=== PATIENT | female | born 1970 | race Two or more races ===

== ENCOUNTER → 2018-04-07 | Outpatient (CLI) | payer OTHER ==
--- NOTE | 2018-04-07 16:33 | US ---
EXAMINATION TYPE: US venous doppler duplex LE RT DATE OF EXAM: 04/07/2018 4:20 PM COMPARISON: NONE CLINICAL HISTORY: M25.571 PAIN,M19.071 OSTEOARTHRITIS,S93.401D SPRAI. Right ankle injury/surgery, rig ht leg pain SIDE PERFORMED: Right TECHNIQUE: The lower extremity deep venous system is examined utilizing real time linear array sonog mya with graded compression, doppler sonography and color-flow sonography. VESSELS IMAGED: External Iliac Vein (EIV) Common Femoral Vein Deep Femoral Vein Greater Saphenous Vein * Femoral Vein Popliteal Vein Small Saphenous Vein * Proximal Calf Veins (* superficial vessels) Grayscale, color doppler, spectral doppler imaging performed of the deep veins of the right lower ext remity. There is normal flow, compressibility, vascular waveforms. Right Leg: Negative for DVT *Results called to Kate at 's office at time of exam IMPRESSION: No sonographic evidence of deep venous thrombosis within the right lower extremity.
[2018-04-07 16:56] LABS: HCT 39.2 % (34.0-46.0); HGB 13.3 gm/dL (11.4-16.0); MCH 30.6 pg (25.0-35.0); Mean Platelet Volume 6.6; Platelet Count 328 k/uL (150-450); RBC 4.36 m/uL (3.80-5.40); RDW 12.1 % (11.5-15.5); WBC 9.7 k/uL (3.8-10.6)
[2018-04-07 19:13] LABS: Erythrocyte Sedimentation Rate 8 mm/hr (0-20)
== END | disposition home or self-care (01) ==
LOC: RADUSWWP 15:51
PROVIDERS: ATTEND Orthopaedic Surgery
DX: S93.401D Sprain of unspecified ligament of right ankle, subsequent encounter (principal); M19.071 Primary osteoarthritis, right ankle and foot; I80.9 Phlebitis and thrombophlebitis of unspecified site
CPT/HCPCS: 36415; 83520; 85027; 85652; 86140; 87070; 87075; 87205; 89060

== ENCOUNTER 2018-12-17 09:05 | Inpatient (IN) | payer OTHER ==
[2018-12-10 16:15] VITALS: BMI 32.4
[~2018-12-17 09:05] MED LIST: DEXAMETHASONE SOD PHOSPHATE 10 MG/ML 1 ML VIAL IV ONE; LIDOCAINE 1% 20 ML VIAL (10MG/ML) FOR IV START INTRADERMA PRN; ONDANSETRON 4 MG/2 ML VIAL IVP ONE; SCOPOLAMINE 1.5MG/72HR PATCH TRANSDERM ONE; ceFAZolin IN SWFI 2 GM/20 ML SYRINGE IVP ONE
[2018-12-17] MEDS: LACTATED RINGERS 1,000 ML IV SCH ×2 (11:26→17:36)
[2018-12-17] MEDS ORDERED: fentaNYL (PF) 50 MCG/ML 2 ML AMP IVP ONE (12:05)
[2018-12-17] MEDS ORDERED: MIDAZOLAM 2 MG/2 ML VIAL IVP ONE (12:05)
[2018-12-17] MEDS ORDERED: PROPOFOL 10 MG/ML 20 ML VIAL IV ONE (13:10)
[2018-12-17] MEDS ORDERED: MIDAZOLAM 2 MG/2 ML VIAL ONE (13:10)
[2018-12-17] MEDS ORDERED: fentaNYL (PF) 50 MCG/ML 2 ML AMP ONE (13:10)
[2018-12-17] MEDS ORDERED: ROPIVACAINE 5 MG/ML 30 ML VIAL ONE (13:10)
[2018-12-17] MEDS ORDERED: LACTATED RINGERS 1,000 ML IV ONE (13:45)
--- NOTE | 2018-12-17 13:50 | P.ONQ ---
Anesthesiology Proc Note - PNB - Peripheral Nerve Block Performed Right Popliteal Single Procedure Start Time: 12:05 Indication: Acute Post-Operative Pain, Analgesia Specifically requested for management of pain by DrStu: Chandrakant Mckeon Sedation Type: Sedate with meaningful contact maintained Preparation: Sterile Prep Position: Supine (L lateral) Catheter: None Needle Types: Other (see comment) (Pajunk) Needle Size: 50mm (2") Needle Gauge: 21 Technique: Ultrasound Injectate: 0.5% Ropivacaine (see comment for volume) (25cc) Blood Aspirated: No Pain Paresthesia on Injection Noted: No Resistance on Injection: Normal Events: Uneventful and Well Tolerated
--- NOTE | 2018-12-17 13:52 | P.ONQ ---
Anesthesiology Proc Note - PNB - Peripheral Nerve Block Performed Right Saphenous/Obturator Single Indication: Acute Post-Operative Pain, Analgesia Specifically requested for management of pain by Dr.: Chandrakant Mckeon Sedation Type: Sedate with meaningful contact maintained Preparation: Sterile Prep Position: Supine Catheter: None Needle Types: Other (see comment) (Pajunk) Needle Size: 100mm (4") Needle Gauge: 21 Technique: Ultrasound Injectate: 0.5% Ropivacaine (see comment for volume) (15cc) Blood Aspirated: No Pain Paresthesia on Injection Noted: No Resistance on Injection: Normal Events: Uneventful and Well Tolerated
--- NOTE | 2018-12-17 15:40 | XR ---
Fluoroscopy INDICATION: Pain FINDINGS: Fluoroscopy time: 1 minute 10 seconds. Images obtained: 2. IMPRESSIONS: 1. Documentation of fluoroscopy.
--- NOTE | 2018-12-17 15:57 | P.OP ---
Date of Procedure: 12/17/18 Preoperative Diagnosis: 1. Right ankle arthritis Postoperative Diagnosis: Same Procedure(s) Performed: 1. Right ankle joint arthrodesis 2. Application of short leg splint by physician, right leg Anesthesia: madyson GORMAN Surgeon: Chandrakant Mckeon Clinical Engineer #1: Marlee Land Estimated Blood Loss (ml): 50 IV fluids (ml): 600 Pathology: none sent Condition: stable Disposition: PACU Indications for Procedure: The patient is a very pleasant 48-year-old female who has a long-standing history of problems with her right ankle. She had developed right ankle arthritis and was initially managed by another provider with cortisone injections and bracing. She came to me 2 years ago to discuss surgical treatment options. Initially her main complaint was a large prominence over the anterior aspect of the ankle and so she underwent an open cheilectomy in an attempt to give her some relief with a joint sparing procedure. She continued to have worsening pain and progression of arthritis on her x-rays. We tried nonsurgical treatment with a repeat cortisone injection and brace but she had continued difficulty and pain. She was sent to a pain specialist. Her ankle was aspirated but was negative for infection. She requested surgery. We discussed different surgical treatment options for end-stage ankle arthritis including an ankle fusion versus an ankle replacement. We discussed the pros and cons of both procedures. The patient did research on her own and requested an ankle fusion. She is well aware of the potential risks and complications of an ankle fusion. She also understands the long-term implications of having an ankle fusion including lack of motion and adjacent joint arthritis. We discussed potential risks and complications of surgery including but not limited to risk of anesthesia, superficial infection, deep infection, delayed wound healing, nonunion of the fusion site, malunion the fusion site, some traumatic hardware, intraoperative fracture, postoperative fracture, DVT, PE, and possibly loss of life or limb. The patient voiced understanding of this and also analysis there are other less common complications are possible. She provided her verbal and written consent to go forward with surgery. Description of Procedure: The patient was identified in preoperative holding and the correct right leg was marked my initials. I reviewed the consent form with the patient and her family. All their questions were answered. The patient was given a popliteal and saphenous nerve block by anesthesia. She was brought to the operating room and transferred onto the OR table where general anesthetic and preoperative antibiotics were administered. A tourniquet was applied to the proximal aspect the right leg. While she was under anesthesia a Silfverskiold test was performed. I was able to passively dorsiflex her ankle past neutral with the knee extended slightly elected to not perform a gastrocnemius recession. All bony prominences were well-padded. A bump was placed under the right buttock. A ramp was placed under the right leg. The right leg was then prepped and draped in standard sterile fashion. Prior to starting surgery timeout was performed identifying the correct patient, operative extremity, and procedure. The patient's leg was then elevated, exsanguinated with an Esmarch bandage, and the tourniquet was inflated to 250 mmHg. I began by outlining a lateral incision over the distal fibula which extended anteriorly 45 of the tip of the fibula. Skin incision with a scalpel and dissection was carried down carefully through subcu tennis tissue with tenotomy scissors. The soft tissue over the anterior aspect of the fibula was sharply released. Modified tibial home and retractors were placed isolating the fibular shaft just proximal to the syndesmosis and an oblique osteotomy was made with a microsagittal saw using saline to cool the bone. The fibula was then booked open using the posterior soft tissue as a hinge. Towel clips were placed and the medial third of the fibula was sharply cut with a microsagittal saw, passed off to the back table, and morcellized for use as bone graft. K wires were then placed into the subchondral bone of the tibial plafond and in the talar dome for use of an invasive distractor. The distractor was placed and gentle distraction was applied across the ankle joint. On inspection there was complete loss of cartilage in the exposed portion of the talar dome and the tibial plafond. There were large osteophytes at the anterior aspect of the tibia which were removed with a Bob. The remaining articular cartilage was removed with a series of curettes and osteotomes. The joint was copiously irrigated and all soft tissue debris was removed. A 2.5 mm drill bit was used to generously perforate the exposed subchondral bone to help facilitate fusion. A mixture of crushed autograft bone taken from the fibula and augment was mixed and packed into the fusion site. K wires for cannulated 5.5 mm screws were placed medially and laterally in the tibia up to the ankle joint. The joint was then positioned for fusion at neutral and the K wires were driven into the talus. Both were measured, drilled up to the ankle joint, and partially threaded 5.5 mm cannulated screws were both placed generating excellent compression across the fusion site. At this point I elected to place a homerun screw. A stab incision was made posteromedially over the Achilles tendon with the foot in the [id number] position. The K wire was driven into the talus. Its position was verified with fluoroscopy. I drilled up to the ankle joint. As I began putting the screw in it began to distract the ankle joint as it was hitting one of the previously placed 5.5 mm screws. I gently backed the screw out and tightened the anteromedial and anterolateral 5.5 mm screw. Due to the patient's relatively poor bone quality I elected to not place another drill hole in the posterior tibia for fear of inadvertently fracturing the tibia. I felt I had very good purchase with the previously taste screws. The fibula was placed back in position and secured with solid 4.5 mm screws through the fibula into the tibia and talus. Final fluoroscopic images were taken. The wound was irrigated carefully to not wash away augment. The wound was then closed in layers. A sterile dressing was applied. The patient was placed in a well-padded bulky Oliver splint. She was awoken from her anesthetic, transferred to a gurney, and brought to PACU without procedure well. Marlee Land PAC was required as a skilled statistical assistant for patient positioning, surgical exposure, retraction placement of hardware, closure of wound, and application of splint. Plan: The patient can be admitted overnight for pain control and IV antibiotics. She is to be strictly nonweightbearing on her operative leg. She is to keep her splint on at all times. Physical therapy will be consulted for gait training. She can discharge home likely tomorrow her pain is controlled and she passes physical therapy.
[2018-12-17] MEDS ORDERED: SENNOSIDES-DOCUSATE SODIUM 1 EACH TAB PO PRN (16:13)
[2018-12-17] MEDS ORDERED: HYDROmorphone 0.5 MG/0.5 ML SYRINGE IVP PRN (16:13)
[2018-12-17] MEDS ORDERED: HYDROcodone/APAP 5-325MG 1 EACH TAB PO PRN ×2 (16:13)
[2018-12-17] MEDS: HYDROmorphone 0.5 MG/0.5 ML SYRINGE IVP PRN ×5 (16:22→22:55)
[2018-12-17 18:29] LABS: Basophils % (A) 0 %; Eosinophils # (A) 0.1 k/uL (0-0.7); Eosinophils % (A) 1 %; HCT 43.3 % (34.0-46.0); Lymphocytes # (A) 1.3 k/uL (1.0-4.8); Lymphocytes % (A) 13 %; MCH 30.7 pg (25.0-35.0); MCHC 32.3 g/dL (31.0-37.0); MCV 95.1 fL (80.0-100.0); Mean Platelet Volume 6.9; Monocytes # (A) 0.2 k/uL (0-1.0); Monocytes % (A) 2 %; Neutrophils # (A) 8.2 k/uL (1.3-7.7); Neutrophils % (A) 84 %; Platelet Count 338 k/uL (150-450); RBC 4.55 m/uL (3.80-5.40); RDW 12.7 % (11.5-15.5); WBC 9.8 k/uL (3.8-10.6)
[2018-12-17] MEDS: ceFAZolin IN SWFI 2 GM/20 ML SYRINGE IVP SCH (20:23)
[2018-12-18] MEDS: HYDROcodone/APAP 7.5-325MG 1 EACH TAB PO PRN ×2 (00:34→06:26)
[2018-12-18] MEDS: HYDROmorphone 0.5 MG/0.5 ML SYRINGE IVP PRN ×11 (01:20→23:00)
[2018-12-18] MEDS: LACTATED RINGERS 1,000 ML IV SCH ×5 (01:27→23:15)
[2018-12-18] MEDS: ceFAZolin IN SWFI 2 GM/20 ML SYRINGE IVP SCH (05:24)
[2018-12-18] MEDS: ENOXAPARIN 40 MG/0.4 ML SYRINGE SQ SCH (07:23)
--- NOTE | 2018-12-18 08:47 | P.PN ---
Subjective Progress Note Date: 12/18/18 Principal diagnosis: Ankle arthritis status-post right ankle joint arthrodesis This is a 48 year old female with a past medical history of arthritis that presented to [facility] yesterday for a right ankle joint arthrodesis with Dr. Mckeon. Today is post-operative day #1. The patient states her pain is currently not controlled. She feels she cannot go home, as she doesn't think she can do without Dilaudid. She has been up to the commode throughout the night, per patient. She has not worked with therapy yet today. She tolerated breakfast well. She denies chest pain, shortness of breath, nausea, vomiting, dysuria, numbness, tingling, fever, chills. Vital signs stable. Objective - Vital Signs Vital signs: Vital Signs Temp 98.1 F 12/18/18 07:00 Pulse 77 12/18/18 07:00 Resp 17 12/18/18 07:00 BP 136/76 12/18/18 07:00 Pulse Ox 96 12/18/18 07:00 Intake & Output 12/17/18 12/18/18 12/18/18 18:59 06:59 18:59 Intake Total 1800 740 Output Total 17 Balance 1783 740 Weight 85.729 kg Intake: IV 1800 Intake, IV Titration 200 Amount Lactated Ringers 1,000 ml 200 @ 100 mls/hr IV .Q10H [place] Rx#:[id number] Oral 540 Output: Estimated Blood Loss 17 Other: Voiding Method Bedside Commode # Voids 1 - Exam On examination, the patient is lying in bed in no acute distress. She is alert and orientated x3. On inspection of the right leg, there is a bulky Oliver splint in place. Splint is clean, dry, and intact. Capillary refill of the right great toe is less than 3 seconds. Sensation to light touch of the toes of right foot are intact. Neurovascular is intact to the right lower extremity. - Labs CBC & Chem 7: 12/17/18 17:29 Labs: Abnormal Lab Results - Last 24 Hours (Table) 12/17/18 Range/Units 17:29 Neutrophils # 8.2 H (1.3-7.7) k/uL Assessment and Plan Assessment: Ankle arthritis status-post right ankle joint arthrodesis Plan: - Patient is to remain non-weight bearing of the right lower extremity. Recommended patient ice and elevate right lower extremity to decrease pain and swelling. - PT for balance and gait training. - [place] 10 q6h added for pain control, decrease use of Diluadid as tolerated. Will continue to monitor pain. - Anticoagulation with lovenox 40mg qd while inpatient. Will switch to aspirin on discharge. - Case management consulted to obtain a wheelchair for patient on discharge. - We will plan for discharge once patient is comfortable and pain is controlled. - Patient discussed with Dr. Mckeon.
[2018-12-18] MEDS: ONDANSETRON 4 MG/2 ML VIAL IVP PRN ×2 (11:30→17:48)
[2018-12-18] MEDS: HYDROcodone/APAP 10-325MG 1 EACH TAB PO PRN ×3 (12:15→22:59)
[2018-12-18] MEDS: CHOLECALCIFEROL 1,000 UNIT TAB PO SCH (12:15)
[2018-12-18] MEDS ORDERED: ALBUTEROL NEBULIZED 2.5 MG/3 ML INHALATION PRN (14:48)
--- NOTE | 2018-12-18 14:59 | P.CONS ---
History of Present Illness - Reason for Consult Consult date: 12/18/18 medical management Requesting physician: Yosi Cano - Chief Complaint Right ankle pain - History of Present Illness 48-year-old female with PMH of asthma and fibromyalgia presents to [facility] for elective right ankle arthrodesis. Patient underwent surgery on 2018. patient was seen and examined this morning. No acute events overnight. Patient complains of severe excruciating right ankle pain, 10 out of 10 in severity. Patient is receiving 0.5 mg of Dilaudid IV every 2 hours. Patient states that the pain medication last for about an hour and a half. Patient also reports multiple episodes of nausea and vomiting. Patient associates nausea and vomiting with Dilaudid injections. She denies any bowel movement but does report passing gas. She denies any headaches, lower extremity edema, fever , cough, chest pain, shortness breath, palpitations, changes in urination or bowel habits. Review of Systems All systems: negative Past Medical History Past Medical History: Asthma, Fibromyalgia, Osteoarthritis (OA) Additional Past Medical History / Comment(s): diverticulitis, unable to bear weight right ankle due to pain, feeling hoarse & nauseated today History of Any Multi-Drug Resistant Organisms: None Reported Past Surgical History: Orthopedic Surgery, Tubal Ligation Additional Past Surgical History / Comment(s): colonoscopy, pain procedures, arthroscopy knee, bone spurs removed right ankle Past Anesthesia/Blood Transfusion Reactions: Motion Sickness, Postoperative Nausea & Vomiting (PONV) Past Psychological History: Anxiety Smoking Status: Former smoker Past Alcohol Use History: None Reported Additional Past Alcohol Use History / Comment(s): quit smoking >15 yrs. ago, 1ppd 15 yrs. Past Drug Use History: Marijuana Additional Drug Use History / Comment(s): uses edible daily and also uses topical - Past Family History Father Family Medical History: Cancer Additional Family Medical History / Comment(s): stomach Mother Family Medical History: Cancer Additional Family Medical History / Comment(s): breast Medications and Allergies Home Medications Medication Instructions Recorded Confirmed Type Albuterol Inhaler [Ventolin Hfa 2 puff INHALATION RT-Q6H PRN 10/30/17 12/18/18 History Inhaler] Ascorbic Acid [Vitamin C] 1,000 mg PO DAILY 10/30/17 12/18/18 History Cholecalciferol [Vitamin D3] 1,000 unit PO DAILY 10/30/17 12/18/18 History DULoxetine HCL [Cymbalta] 60 mg PO BID 10/30/17 12/18/18 History Ergocalciferol (Vitamin D2) 50,000 unit PO WE 10/30/17 12/18/18 History [Vitamin D2] Glucosam/Scott-Msm1/C/Abdulkadir/Bosw 1 tab PO DAILY 10/30/17 12/18/18 History [Glucosamine-Chondroitin Tablet] Mometasone/Formoterol [Dulera 100 2 puff INHALATION RT-BID 10/30/17 12/18/18 History Mcg/5 Mcg Inhaler] Multivitamins, Thera [Multivitamin 1 tab PO DAILY 10/30/17 12/18/18 History (formulary)] busPIRone HCl [Buspar] 5 mg PO BID 11/01/17 12/18/18 History Albuterol Nebulized [Ventolin 2.5 mg INHALATION RT-Q6H PRN 12/10/18 12/18/18 History Nebulized] traMADol HCL [Ultram] 50 mg PO Q6HR PRN 12/10/18 12/18/18 History Aspirin 325 mg PO DAILY #14 tab 12/17/18 Rx Docusate [Colace] 100 mg PO BID #60 capsule 12/17/18 Rx oxyCODONE-APAP 5-325MG [Percocet 1 tab PO Q6HR PRN 7 Days #30 tab 12/17/18 Rx 5-325 mg] Pregabalin [Lyrica] 75 mg PO BID 12/18/18 12/18/18 History Allergies Allergy/AdvReac Type Severity Reaction Status Date / Time No Known Allergies Allergy Verified 12/18/18 07:11 Physical Exam Vitals: Vital Signs Temp Pulse Resp BP Pulse Ox 12/18/18 07:10 17 12/18/18 07:00 98.1 F 77 17 136/76 96 12/18/18 00:19 73 17 135/63 95 12/17/18 20:11 98.4 F 70 16 120/69 96 12/17/18 20:00 78 117/75 12/17/18 19:45 73 139/90 12/17/18 19:30 81 143/70 12/17/18 19:15 73 134/87 12/17/18 19:00 76 132/81 12/17/18 18:45 92 116/73 12/17/18 18:15 80 153/71 97 12/17/18 18:00 98 F 65 16 137/86 97 12/17/18 16:45 59 L 18 161/84 92 L 12/17/18 16:31 64 18 155/75 98 12/17/18 16:15 63 18 133/65 97 12/17/18 16:05 97.2 F L 57 L 16 128/60 95 Intake and Output 12/17/18 12/18/18 12/18/18 22:59 06:59 14:59 Intake Total 1040 296 Output Total 17 Balance 1023 296 Intake: IV 300 Intake, IV Titration 200 Amount Lactated Ringers 1,000 ml 200 @ 100 mls/hr IV .Q10H [place] Rx#:[id number] Oral 540 296 Output: Estimated Blood Loss 17 Other: Voiding Method Bedside Commode Bedside Commode # Voids 1 1 Weight 85.729 kg General: [non toxic], [no distress], [appears at stated age] Derm: [warm], [dry] Head: [atraumatic], [normocephalic], [symmetric] Eyes: [EOMI], [no lid lag], [anicteric sclera] Mouth: [no lip lesion], [mucus membranes moist] Cardiovascular: [S1S2 reg], [no murmur], [positive posterior tibial pulse bilateral], Lungs: [end expiratory wheezes], [no rhonchi, no rales] , [no accessory muscle use] Abdominal: [soft], [ nontender to palpation], [no guarding], [no appreciable organomegaly] Ext: [no gross muscle atrophy], [no edema], [no contractures], [right ankle wrapped, tenderness to palpation with limited range of motion due to pain] Neuro: [no focal neuro deficits] Psych: [Alert], [oriented], [appropriate affect] Results CBC & Chem 7: 12/17/18 17:29 Labs: Abnormal Lab Results - Last 24 Hours (Table) 12/17/18 Range/Units 17:29 Neutrophils # 8.2 H (1.3-7.7) k/uL Assessment and Plan Assessment: Assessment and Plan 1. Right ankle arthritis status post post right ankle arthrodesis 2. Fibromyalgia 3. Anxiety 1. Postop day 1 today. Pain management with [place] 10 one tab by mouth every 6 hours as needed for pain, Dilaudid 0.5 mg IV every 2 hours as needed for severe pain. Weightbearing as per Ortho recommendations. Will follow PT and OT recommendations. 2. Stable. I will resume her home dose of Cymbalta and Lyrica. 3. Stable. Continue Buspar. Thank you for involving us in the care of this patient. If you have any questions, please feel free to contact us at all times. We will continue to follow.
[2018-12-18] MEDS: PREGABALIN 75 MG CAP PO SCH (16:39)
[2018-12-18] MEDS: CALCIUM CARBONATE 500 MG CHEWABLE PO SCH ×2 (16:40→20:23)
[2018-12-18] MEDS: DULoxetine HCL 60 MG CAPSULE.DR PO SCH (20:23)
[2018-12-18] MEDS: busPIRone HCl 5 MG TAB PO SCH (20:23)
[2018-12-19] MEDS: HYDROmorphone 0.5 MG/0.5 ML SYRINGE IVP PRN ×5 (00:55→10:09)
[2018-12-19 01:32] VITALS: TEMP 98.1
[2018-12-19] MEDS: HYDROcodone/APAP 10-325MG 1 EACH TAB PO PRN (05:12)
[2018-12-19 07:37] VITALS: BP 143/92; PULSE 78; RESP 14
[2018-12-19] MEDS: ENOXAPARIN 40 MG/0.4 ML SYRINGE SQ SCH (07:42)
[2018-12-19] MEDS: busPIRone HCl 5 MG TAB PO SCH (07:43)
[2018-12-19] MEDS: PREGABALIN 75 MG CAP PO SCH (07:43)
[2018-12-19] MEDS: DULoxetine HCL 60 MG CAPSULE.DR PO SCH (07:43)
[2018-12-19] MEDS: LACTATED RINGERS 1,000 ML IV SCH (07:44)
[2018-12-19] MEDS: ONDANSETRON 4 MG/2 ML VIAL IVP PRN (07:46)
--- NOTE | 2018-12-19 08:42 | P.DS ---
Providers Date of admission: 12/18/18 19:39 Attending physician: Chandrakant Mckeon Consults: 12/18/18 12:08 Consult Physician Routine Consulting Provider: Diony Lo Consult Reason/Comments: Medical Management Do you want consulting provider notified?: Yes Primary care physician: [facility] Course: This is a 48-year-old female with a past medical history of asthma and fibromyalgia that was seen by Dr. Mckeon for her ankle arthritis. After failing nonsurgical treatment, the patient requested surgery. Patient underwent a right ankle joint fusion on 12/17/[address] Mckeon. The patient was admitted to [facility] for pain management following this procedure. Procedure was performed without complication or sequelae. Patient is doing well postoperatively. Vital signs and postoperative labs are stable. The patient is transferring to the bedside commode with assistance. Patient was seen at bedside today and she has no new complaints. She denies chest pain, shortness of breath, fevers, chills, tingling, numbness, abdominal pain, or dysuria. Patient states her pain is currently controlled. On exam the patient is sitting up in bed in no acute distress. Patient is alert and oriented 3. A Bulky Oliver splint is in place to the right lower extremity. The toes are warm and well perfused with brisk capillary refill. Sensation is intact to the toes. There is no pain to passive range of motion of toes. She is able to actively move her toes without difficulty. Right calf if soft and nontender. Right dorsalis pedis pulse +2. The patient is discharged in good condition. Please see discharge orders. Please refer to the med rec for accurate list of medications. Patient Condition at Discharge: Good Plan - Discharge Summary New Discharge Prescriptions: New Aspirin 325 mg PO DAILY #14 tab Docusate [Colace] 100 mg PO BID #60 capsule oxyCODONE-APAP 5-325MG [Percocet 5-325 mg] 1 tab PO Q6HR PRN 7 Days #30 tab PRN Reason: Pain Ondansetron [Zofran] 4 mg PO Q8HR PRN #10 tab PRN Reason: Nausea And Vomiting No Action Cholecalciferol [Vitamin D3] 1,000 unit PO DAILY Ascorbic Acid [Vitamin C] 1,000 mg PO DAILY Glucosam/Scott-Msm1/C/Abdulkadir/Bosw [Glucosamine-Chondroitin Tablet] 1 tab PO DAILY Ergocalciferol (Vitamin D2) [Vitamin D2] 50,000 unit PO WE DULoxetine HCL [Cymbalta] 60 mg PO BID Albuterol Inhaler [Ventolin Hfa Inhaler] 2 puff INHALATION RT-Q6H PRN PRN Reason: Dyspnea Multivitamins, Thera [Multivitamin (formulary)] 1 tab PO DAILY Mometasone/Formoterol [Dulera 100 Mcg/5 Mcg Inhaler] 2 puff INHALATION RT-BID busPIRone HCl [Buspar] 5 mg PO BID traMADol HCL [Ultram] 50 mg PO Q6HR PRN PRN Reason: Pain Albuterol Nebulized [Ventolin Nebulized] 2.5 mg INHALATION RT-Q6H PRN PRN Reason: Dyspnea Pregabalin [Lyrica] 75 mg PO BID Discharge Medication List Albuterol Inhaler [Ventolin Hfa Inhaler] 2 puff INHALATION RT-Q6H PRN 10/30/17 [ History] Ascorbic Acid [Vitamin C] 1,000 mg PO DAILY 10/30/17 [History] Cholecalciferol [Vitamin D3] 1,000 unit PO DAILY 10/30/17 [History] DULoxetine HCL [Cymbalta] 60 mg PO BID 10/30/17 [History] Ergocalciferol (Vitamin D2) [Vitamin D2] 50,000 unit PO WE 10/30/17 [History] Glucosam/Scott-Msm1/C/Abdulkadir/Bosw [Glucosamine-Chondroitin Tablet] 1 tab PO DAILY 10/30/17 [History] Mometasone/Formoterol [Dulera 100 Mcg/5 Mcg Inhaler] 2 puff INHALATION RT-BID [History] Multivitamins, Thera [Multivitamin (formulary)] 1 tab PO DAILY 10/30/17 [History ] busPIRone HCl [Buspar] 5 mg PO BID 11/01/17 [History] Albuterol Nebulized [Ventolin Nebulized] 2.5 mg INHALATION RT-Q6H PRN 12/10/18 [ History] traMADol HCL [Ultram] 50 mg PO Q6HR PRN 12/10/18 [History] Aspirin 325 mg PO DAILY #14 tab 12/17/18 [Rx] Docusate [Colace] 100 mg PO BID #60 capsule 12/17/18 [Rx] oxyCODONE-APAP 5-325MG [Percocet 5-325 mg] 1 tab PO Q6HR PRN 7 Days #30 tab [Rx] Pregabalin [Lyrica] 75 mg PO BID 12/18/18 [History] Ondansetron [Zofran] 4 mg PO Q8HR PRN #10 tab 12/19/18 [Rx] Follow up Appointment(s)/Referral(s): [facility], [NON-STAFF] - As Needed Chandrakant Mckeon MD [Medical Doctor] - 2 Weeks Activity/Diet/Wound Care/Special Instructions: - Strict non-weight bearing on your operative leg. Keep splint clean, dry, and intact. Do not remove your splint. - Ice and elevate the operative leg to decrease swelling and pain. - Take pain medications as directed. Take Colace or Miralax as a stool softener. Take aspirin for blood clot prevention. Zofran as needed for nausea. - Follow-up appointment in the office with Dr. Mckeon in 2 weeks. - Call the office if any questions or concerns, Discharge Disposition: HOME WITH HOME HEALTH SERVICES
[2018-12-19] MEDS: CALCIUM CARBONATE 500 MG CHEWABLE PO SCH (09:03)
[2018-12-19] MEDS ORDERED: oxyCODONE-APAP 5-325MG 1 EACH TAB PO PRN (09:11)
[2018-12-19] MEDS ORDERED: HYDROmorphone 2 MG TAB PO PRN (11:16)
[2018-12-19] MEDS: CHOLECALCIFEROL 1,000 UNIT TAB PO SCH (13:37)
== END 2018-12-19 14:25 | disposition home health service (06) | DRG 494 ==
LOC: OR 09:05 → EDSTATUS 09:15 → 4SSUR 16:05 → OR 12-18 02:03 → 4SSUR 12-18 03:37 → OBSVTOIN 12-18 19:39
PROVIDERS: ADMIT Orthopaedic Surgery; ATTEND Orthopaedic Surgery
PROC: 0SGF04Z Fusion of Right Ankle Joint with Internal Fixation Device, Open Approach (ICD-10-PCS; principal; 2018-12-17 11:00)
PROC: 0SGF0JZ Fusion of Right Ankle Joint with Synthetic Substitute, Open Approach (ICD-10-PCS; principal; 2018-12-17 11:00)
DX: M19.071 Primary osteoarthritis, right ankle and foot (principal); F41.9 Anxiety disorder, unspecified; J45.909 Unspecified asthma, uncomplicated; M79.7 Fibromyalgia; Z79.51 Long term (current) use of inhaled steroids; Z79.82 Long term (current) use of aspirin; Z79.899 Other long term (current) drug therapy; Z87.891 Personal history of nicotine dependence; Z79.1 Long term (current) use of non-steroidal anti-inflammatories (NSAID)
CPT/HCPCS: 64450; 64493; 82306; 85025

== ENCOUNTER → 2019-01-01 | Outpatient (CLI) | payer OTHER ==
--- NOTE | 2019-01-01 15:16 | US ---
EXAMINATION TYPE: US venous doppler duplex LE RT DATE OF EXAM: 01/01/2019 3:07 PM COMPARISON: US CLINICAL HISTORY: I80.9 phlebitis,M25.571 R leg pain. Pt states right leg/calf pain s/p rt ankle fusi on surgery SIDE PERFORMED: Right TECHNIQUE: The lower extremity deep venous system is examined utilizing real time linear array sonog mya with graded compression, doppler sonography and color-flow sonography. VESSELS IMAGED: External Iliac Vein (EIV) Common Femoral Vein Deep Femoral Vein Greater Saphenous Vein * Femoral Vein Popliteal Vein Small Saphenous Vein * Proximal Calf Veins (* superficial vessels) Right Leg: Negative for DVT, unable to visualize PTV's due to cast on lower right leg Results called to Criss at Dr's office at time of exam IMPRESSION: 1. Right lower extremity venous ultrasound negative for deep venous thrombosis. 2. The posterior tibial veins aren't able to be visualized due to cast present.
== END | disposition home or self-care (01) ==
LOC: RADUSWWP 14:43
PROVIDERS: ATTEND Orthopaedic Surgery
DX: M25.571 Pain in right ankle and joints of right foot (principal); M19.071 Primary osteoarthritis, right ankle and foot; F12.90 Cannabis use, unspecified, uncomplicated; R63.4 Abnormal weight loss; R26.81 Unsteadiness on feet; Z48.89 Encounter for other specified surgical aftercare

== ENCOUNTER → 2022-04-02 | Outpatient (CLI) | payer OTHER ==
[2022-04-02 13:46] LABS: INR 0.9 (<1.2); Partial Thromboplastin Time 22.2 sec (22.0-30.0); Prothrombin Time 9.8 sec (9.0-12.0)
[2022-04-02 18:05] LABS: HCT 42.7 % (37.2-46.3); HGB 13.3 g/dL (12.0-15.0); MCH 29.1 pg (27.0-32.0); MCHC 31.1 g/dL (32.0-37.0); MCV 93.4 fL (80.0-97.0); Mean Platelet Volume 9.4 fL (9.5-12.2); NRBC Per 100 WBC 0 /100 WBCS (0.0-0.0); Platelet Count 351 X 10*3/uL (140-440); RBC 4.57 X 10*6/uL (4.10-5.20); RDW 11.9 % (11.5-14.5); WBC 10.42 X 10*3/uL (4.50-10.00)
[2022-04-02 18:58] LABS: ALT 30 U/L (8-44); AST 23 U/L (13-35); African American GFR (CKD) 93.3 (60.0-200.0); Albumin 4.3 g/dL (3.8-4.9); Albumin/Globulin Ratio 1.86 (1.60-3.17); Alkaline Phosphatase 81 U/L (41-126); BUN/Creat Ratio 17.25 Ratio (12.00-20.00); Blood Urea Nitrogen 14.4 mg/dL (9.0-27.0); Calcium 9.2 mg/dL (8.7-10.3); Carbon Dioxide 25.5 mmol/L (20.0-27.5); Chloride 104 mmol/L (96-109); Globulin 2.3 g/dL (1.6-3.3); Glucose 95 mg/dL (70-110); Non-African American GFR(CKD) 80.5 (60.0-200.0); Potassium 4.6 mmol/L (3.5-5.5); Sodium 140 mmol/L (135-145); Total Bilirubin <0.15 mg/dL (0.30-1.20); Total Protein 6.7 g/dL (6.2-8.2)
[2022-04-02 20:41] LABS: Appearance,Urine Clear (Clear); Bacteria,Urine None Seen /HPF (None Seen); Bilirubin,Urine Negative (Negative); Blood,Urine Negative (Negative); Color,Urine Yellow (Yellow); Ketones,Urine Negative (Negative); Nitrite,Urine Negative (Negative); Specific Gravity,Urine 1.007 (1.001-1.030); Urobilinogen,Urine 0.2 (0.2,1.0)
== END | disposition home or self-care (01) ==
LOC: LABPAT 12:19
PROVIDERS: ATTEND Orthopaedic Surgery
DX: Z01.812 Encounter for preprocedural laboratory examination (principal)
CPT/HCPCS: 36415; 80053; 81001; 85027; 85610; 85730; 87070

== ENCOUNTER → 2022-04-13 | Day surgery (SDC) | payer OTHER ==
[2022-04-11 12:25] VITALS: BMI 36.6
[~2022-04-13] MED LIST changes: +ACETAMINOPHEN TAB 500 MG TAB PO PRN; -DEXAMETHASONE SOD PHOSPHATE 10 MG/ML 1 ML VIAL IV ONE; +DEXAMETHASONE SOD PHOSPHATE 10 MG/ML 1 ML VIAL IV PRN; +DEXAMETHASONE SOD PHOSPHATE 4 MG/ML 1 ML VIAL IV ONE; +DOCUSATE 100 MG CAP PO PRN; +FAMOTIDINE 20 MG/2 ML VIAL IVP PRN; +HYDROmorphone 0.5 MG/0.5 ML SYRINGE IVP PRN; +KETOROLAC 15 MG/ML 1 ML VIAL IVP PRN; +LACTATED RINGERS 1,000 ML IV SCH; +LIDOCAINE 1% (10MG/ML) FOR IV START INTRADERMA PRN; -LIDOCAINE 1% 20 ML VIAL (10MG/ML) FOR IV START INTRADERMA PRN; -ONDANSETRON 4 MG/2 ML VIAL IVP ONE; +ONDANSETRON 4 MG/2 ML VIAL IVP PRN; +ROPIVACAINE/EPI/CLONIDINE/KET 50 ML SYRINGE MISCELLANE PRN; -SCOPOLAMINE 1.5MG/72HR PATCH TRANSDERM ONE; +TRANEXAMIC ACID IN NACL,ISO-OS 1,000 MG in SALINE 1 100ML.BAG IVPB PRN; -ceFAZolin IN SWFI 2 GM/20 ML SYRINGE IVP ONE; +oxyCODONE ER 10 MG TAB.ER.12H PO PRN
== END ==
LOC: OR 11:34
PROVIDERS: ATTEND Orthopaedic Surgery
DX: Z53.9 Procedure and treatment not carried out, unspecified reason (principal)
CPT/HCPCS: 86850; 86900; 86901

== ENCOUNTER → 2022-04-16 | Outpatient (CLI) | payer OTHER | END | disposition home or self-care (01) | LOC: LABPAT 16:02 | PROVIDERS: ATTEND Orthopaedic Surgery | DX: Z01.812 Encounter for preprocedural laboratory examination (principal) | CPT/HCPCS: 36415; 86850; 86900; 86901 ==

== ENCOUNTER 2022-04-27 11:23 | Day surgery (SDC) | payer OTHER ==
[~2022-04-27 11:23] MED LIST changes: -DEXAMETHASONE SOD PHOSPHATE 4 MG/ML 1 ML VIAL IV ONE; -HYDROmorphone 0.5 MG/0.5 ML SYRINGE IVP PRN; -KETOROLAC 15 MG/ML 1 ML VIAL IVP PRN; -LACTATED RINGERS 1,000 ML IV SCH; -LIDOCAINE 1% (10MG/ML) FOR IV START INTRADERMA PRN; -ONDANSETRON 4 MG/2 ML VIAL IVP PRN
[2022-04-27] MEDS ORDERED: ONDANSETRON 4 MG/2 ML VIAL IVP ONE (11:42)
[2022-04-27] MEDS ORDERED: DEXAMETHASONE SOD PHOSPHATE 4 MG/ML 1 ML VIAL IV ONE (11:42)
[2022-04-27] MEDS ORDERED: HYDROmorphone 0.5 MG/0.5 ML SYRINGE IVP PRN ×3 (11:42→18:22)
[2022-04-27 12:31] LABS: Glucose,Whole Blood 98 mg/dL (75-99)
[2022-04-27] MEDS: LACTATED RINGERS 1,000 ML IV SCH (12:49)
[2022-04-27] MEDS: KETOROLAC 15 MG/ML 1 ML VIAL IVP PRN ×2 (12:49→18:42)
[2022-04-27] MEDS: ONDANSETRON 4 MG/2 ML VIAL IVP PRN ×2 (12:49→18:42)
[2022-04-27] MEDS ORDERED: fentaNYL (PF) 50 MCG/ML 2 ML AMP ONE (15:24)
[2022-04-27] MEDS ORDERED: GLYCOPYRROLATE 0.2 MG/ML 2 ML VIAL ONE (15:24)
[2022-04-27] MEDS ORDERED: TRANEXAMIC ACID IN NACL,ISO-OS 1,000 MG/100 ML BAG ONE (15:24)
[2022-04-27] MEDS ORDERED: ALBUTEROL HFA INHALER INHALATION ONE (15:24)
[2022-04-27] MEDS ORDERED: MIDAZOLAM 2 MG/2 ML VIAL ONE (15:24)
[2022-04-27] MEDS ORDERED: PROPOFOL 10 MG/ML 20 ML VIAL IV ONE (15:24)
[2022-04-27] MEDS ORDERED: KETAMINE 10 MG/ML 20 ML VIAL ONE (15:24)
[2022-04-27] MEDS ORDERED: LIDOCAINE 2% INJ 20 MG/ML (2 ML VIAL) ONE (15:24)
[2022-04-27] MEDS ORDERED: SUCCINYLCHOLINE CHLORIDE 100 MG/5 ML SYR IV ONE (15:24)
[2022-04-27] MEDS ORDERED: HYDROmorphone (PF) 1 MG/ML ONE (15:24)
[2022-04-27] MEDS ORDERED: NEOSTIGMINE 1 MG/ML 10 ML VIAL ONE (15:24)
[2022-04-27] MEDS ORDERED: ROCURONIUM 10 MG/ML (5 ML VIAL) IV ONE (15:24)
[2022-04-27] MEDS ORDERED: LACTATED RINGERS 1,000 ML IV ONE (16:29)
--- NOTE | 2022-04-27 18:13 | P.OP ---
Date of Procedure: 04/27/22 Preoperative Diagnosis: Severe left hip osteoarthritis Postoperative Diagnosis: Same Procedure(s) Performed: Left direct anterior total hip arthroplasty Implants: 1. Shree Trident II 50 mm acetabular cup 2. Shree accolade II size #4, standard offset femoral stem 3. Zeigler MDM 38 mm outer diameter, 22.2 mm inner diameter +0 (Dual mobility was used due to the patient's history of lumbar spine fusion and concern for altered spinal pelvic motion and increased risk of instability) Anesthesia: VITA Surgeon: Chandrakant Mckeon Driver Starting Gate #1: Marlee Land Estimated Blood Loss (ml): 200 IV fluids (ml): 1,200 Pathology: other (Femoral head to pathology) Indications for Procedure: I had a long discussion with the patient in the office on the potential risks and complications of an elective total hip replacement through a direct anterior approach. Risks discussed include, but are certainly not limited to, risks from anesthesia, superficial infection requiring local wound care or antibiotics, deep mariaa-prosthetic joint infection and the treatment required to eradicate infection, intraoperative fracture, postoperative periprosthetic fracture, damage to local blood vessels or nerves particularly the lateral femoral cutaneous nerve, delayed wound healing requiring local wound care or possibly surgical debridement, hip dislocation, leg length discrepancy, soft tissue irritation around the total hip implant such as iliopsoas tendinitis or trochanteric bursitis, wear and osteolysis from the implants, squeaking or audible noises, groin pain, thigh pain, heterotopic ossification, stiffness, aseptic loosening of the implants, dissatisfaction with surgical outcome, need for revision surgery, DVT, PE, swelling of the operative extremity, acute coronary event, stroke, failure to thrive, and possibly loss of life or limb. The patient understands that while these are the most common complications after an elective hip replacement there are certainly other less common complications possible. They were given ample time to ask questions regarding the potential complications of a hip replacement. Following our discussion the patient provided their verbal and written consent to go forward with an elective total hip replacement. Operative Findings: Severe left hip osteoarthritis Description of Procedure: The patient was identified in the preoperative holding area and the correct hip was marked with my initials. I reviewed the procedure and consent with the patient. All of their questions were answered. The patient was then brought back into the operating room by anesthesia. While on the [facility] anesthesia was administered by the anesthesia team. Preoperative antibiotics and tranexamic acid were also given. After the patient was under anesthesia I examined their ankles to determine their preoperative leg length discrepancy. The skin over the anterior aspect of the hip was shaved to remove hair over the site of planned incision. Both feet and ankles were padded with webril and boots for the [place] were applied. The patient was then carefully transferred onto the [place] table. A perineal post was immediately placed. The arms were placed on arm holders and were well-padded. Both boots were secured to the spars on the [place] table. The patient was positioned so that the pelvis was centered over the post. Nonsterile drapes were applied. A timeout was performed identifying the correct patient, operative extremity, and procedure. At this point fluoroscopy was brought in to take preoperative images of the pelvis and operative hip. Using the standing AP pelvis from the office as a template, a comparable image was obtained with fluoroscopy. A metallic bar was used to create a bi-ischial line for use as a reference to leg length adjustments during the procedure. Global offset was also measured on both the operative and nonoperative leg. Fluoroscopy was then brought out and a pre-scrub using a chlorhexidine scrub brush was performed. The operative limb was then prepped and draped in the standard sterile fashion. An anterior longitudinal incision was made lateral and distal to the ASIS. The skin and subcutaneous tissues were incised sharply. The underlying tensor fascia was identified and incised in its midportion. The fascia was dissected free from the underlying muscle and the muscle belly was retracted. A blunt tipped cobra retractor was placed over the superior neck under the muscle fibers of the gluteus minimus. The deep enveloping fascia of the tensor was incised. The anterior leash of vessels were then identified and cauterized. The fascia between the rectus and the capsule was then incised and the pre-capsular fat was excised. A second Cobra was placed inferior to the neck. The interval between the rectus and iliocapsularis and the hip capsule was developed and a retractor was placed carefully over the anterior rim of the acetabulum. A T-shaped anterior capsulotomy was performed. The superior capsular leaflet was left in place in the inferior capsular flap was excised. The Cobra retractors were placed intracapsularly. We then made a femoral neck osteotomy according to preoperative and intraoperative templating and confirmed the level of the osteotomy using fluoroscopic imaging. The femoral head was removed, passed off to the back table, and sized. The superior capsular flap was excised. Retract ors were placed circumferentially exposing the acetabulum. We then circumferentially debrided the acetabulum free of labrum and osteophytes. The pulvinar was removed to fully visualize the cotyloid fossa. We then sequentially reamed to achieve peripheral fit and excellent bleeding subchondral bone. The socket was thoroughly irrigated. The acetabular component was impacted into the appropriate position using fluoroscopy to guide version, inclination, and depth of insertion taking care to have a comparable image of the AP pelvis to the standing image taken in the office. An excellent press-fit was achieved and final position was confirmed using fluoroscopy. The press fit was augmented with bony cancellus dome screws. The liner was then impacted into the socket. Attention was then turned to the femur. The remnant dorsal lateral capsule was excised. The short external rotators were visible and protected. A bone hook was used to confirm appropriate translation of the trochanter away from the acetabulum. The leg was then extended and adducted and the bone hook was used to elevate the femur for broaching. A box osteotome and blunt tipped canal sound was then utilized to gain access to the femoral canal. We then sequentially broached the femur in appropriate anteversion until excellent torsional stability was achieved. The neck cut was brought flush to the trial broach with a calcar planar. A trial neck and head were then placed onto the broach and the hip was atraumatically reduced under direct visualization. External rotation to 90 was performed to assess stability. Fluoroscopy was brought in. An AP and lateral fluoroscopic image of the proximal femur was obtained to assess position and fill of the trial broach. An AP of the pelvis was then obtained and matched to the preoperative image taken. A bi-ischial bar was then placed and measurements were taken to assess changes in length and offset. The hip was then carefully dislocated, the proximal femur was exposed, and the trial implants were removed. The wound and proximal femur was thoroughly irrigated using sterile saline and pulsatile lavage. The final femoral implant was dispensed and gently tapped into place generating an excellent press-fit. The trunnion was cleansed and the final head was tapped into place to engage the Davidson taper. The acetabulum was irrigated and visualized to be free of debris. The hip was carefully reduced. Stability was checked clinically with external rotation to 90 and there was no evidence of instability. Final fluoroscopic images were taken. The wound was then thoroughly irrigated and soaked with a dilute Betadine rinse for 3 minutes. 3 L of sterile saline was irrigated through the wound using pulsatile lavage. Local anesthetic cocktail was injected into the soft tissues around the surgical field. A deep drain was placed. The wound was then closed in layers. 3-0 nylon interrupted vertical mattress sutures were placed to reinforce the subcuticular closure. Due to the patient's obesity and overlying pannus an incisional wound VAC was placed. The wound measured 15 cm and a 20 m incisional Prevena wound VAC was placed. The drapes were taken down and the patient was carefully transferred off of the [place] table. Following removal of the boots the leg lengths felt acceptable. The patient was then taken to recovery room having tolerated the procedure well. Marlee Land PA-C was required as a skilled graduate assistant for patient positioning, surgical exposure, retraction, placement of implants, and closure of the surgical wound. PLAN: The patient can weight-bear as tolerated on the operative extremity. 2 doses of postoperative antibiotics. DVT prophylaxis with aspirin 81 mg twice a day based on preoperative risk stratification. Due to the patient's pannus and elevated risk of wound issues I would like her discharged on 2 weeks of doxycycline 100 mg twice a day for low-dose oral antibiotic prophylaxis. Physical therapy for gait training. Discontinue drain postoperative day #1 if output is less than 100 mL per shift.
[2022-04-27] MEDS ORDERED: HYDROcodone/APAP 5-325MG 1 EACH TAB PO PRN (18:22)
[2022-04-27] MEDS ORDERED: ONDANSETRON 4 MG/2 ML VIAL IVP PRN (18:22)
[2022-04-27] MEDS ORDERED: HYDROmorphone 1 MG/ML 1 ML SYRINGE IVP PRN (18:22)
[2022-04-27] MEDS ORDERED: hydrOXYzine pamoate 25 MG CAP PO PRN (18:22)
[2022-04-27] MEDS ORDERED: NALOXONE 0.4 MG/ML 1 ML VIAL IV PRN (18:22)
[2022-04-27] MEDS: HYDROcodone/APAP 5-325MG 1 EACH TAB PO PRN (19:41)
[2022-04-27] MEDS: ASPIRIN 81 MG PO SCH (19:41)
--- NOTE | 2022-04-27 19:45 | XR ---
EXAMINATION TYPE: XR Hip Limited LT DATE OF EXAM: 04/27/2022 COMPARISON: NONE HISTORY: Surgery TECHNIQUE: 45.9 seconds fluoroscopy time was recorded for the hip surgery. A single fluoroscopic imag e shows left hip prosthesis in good position. IMPRESSION: No complicating process seen.
[2022-04-27] MEDS ORDERED: SENNOSIDES-DOCUSATE SODIUM 1 EACH TAB PO SCH (21:00)
[2022-04-27] MEDS: GABAPENTIN 300 MG CAP PO SCH (23:42)
[2022-04-28] MEDS ORDERED: ALBUTEROL NEBULIZED 2.5 MG/3 ML INHALATION PRN (00:41)
--- NOTE | 2022-04-28 01:00 | P.CONS ---
History of Present Illness - Reason for Consult Consult date: 04/27/22 post surgery medical management - Chief Complaint left hip replacement - History of Present Illness 51 year old female with mild persistent asthma, fibromyalgia adore comes in for scheduled left total hip arthroplasty , tHAT SHE TOLERATED WELL , NO OBSERVED IMMEDIATE POST OP COMPLICATIONS, SHE DENIES ANY CHEST PAIN TROUBLE BREATHING , TOLERATED po INTAKE , DENIES ANY FEVER CHILLS. Review of Systems Pertinent positives as noted in HPI. All other systems were reviewed and are negative Past Medical History Past Medical History: Asthma, Fibromyalgia, Osteoarthritis (OA) Additional Past Medical History / Comment(s): diverticulitis, unable to bear weight right ankle due to pain, surgery was rescheduled recently but not do to any patient issues History of Any Multi-Drug Resistant Organisms: None Reported Past Surgical History: Orthopedic Surgery, Tubal Ligation Additional Past Surgical History / Comment(s): colonoscopy, pain procedures, arthroscopy knee, bone spurs removed right ankle Past Anesthesia/Blood Transfusion Reactions: Motion Sickness, Postoperative Nausea & Vomiting (PONV) Past Psychological History: Anxiety Smoking Status: Former smoker Past Alcohol Use History: None Reported Additional Past Alcohol Use History / Comment(s): quit smoking >15 yrs. ago, 1ppd 15 yrs. Past Drug Use History: Marijuana Additional Drug Use History / Comment(s): uses edible daily and also uses topical - Past Family History Father Family Medical History: Cancer Additional Family Medical History / Comment(s): stomach Mother Family Medical History: Cancer Additional Family Medical History / Comment(s): breast Brother(s) Family Medical History: Deep Vein Thrombosis (DVT), Pulmonary Embolus Medications and Allergies Home Medications Medication Instructions Recorded Confirmed Type Mometasone/Formoterol [Dulera 100 2 puff INHALATION RT-BID 10/30/17 04/27/22 History Mcg/5 Mcg Inhaler] Multivitamins, Thera [Multivitamin 1 tab PO DAILY 10/30/17 04/27/22 History (formulary)] busPIRone HCl [Buspar] 15 mg PO Q8HR 11/01/17 04/27/22 History Albuterol Sulfate [Proair Hfa] 1 - 2 puff INHALATION Q6HR PRN 04/11/22 04/27/22 History Celecoxib [CeleBREX] 200 mg PO BID 04/11/22 04/27/22 History Desvenlafaxine Succinate [Pristiq] 100 mg PO DAILY 04/11/22 04/27/22 History Montelukast [Singulair] 10 mg PO HS 04/11/22 04/27/22 History methocarbamoL [Robaxin] 750 mg PO QID PRN 04/11/22 04/27/22 History predniSONE 5 mg PO DAILY 04/11/22 04/27/22 History Gabapentin 600 mg PO BID 04/27/22 04/27/22 History oxyCODONE HCL/ACETAMINOPHEN 1 tab PO Q6H PRN 04/27/22 04/27/22 History [oxyCODONE HCL/ACETAMINOPHEN 5-325] Allergies Allergy/AdvReac Type Severity Reaction Status Date / Time adhesive tape Allergy BLISTERS Verified 04/27/22 12:00 clonazepam [From Klonopin] AdvReac Hallucinati Verified 04/27/22 12:00 ons Physical Exam Vitals: Vital Signs Temp Pulse Pulse Resp BP Pulse Ox 04/27/22 21:20 86 122/83 97 04/27/22 20:50 83 122/77 95 04/27/22 20:20 84 111/79 95 04/27/22 20:05 72 121/80 96 04/27/22 19:50 74 138/85 99 04/27/22 19:35 80 142/82 97 04/27/22 19:20 77 123/82 96 04/27/22 18:59 81 16 166/77 96 04/27/22 18:46 75 16 168/78 95 04/27/22 18:31 74 16 152/78 98 04/27/22 18:14 97.0 F L 61 14 173/81 99 04/27/22 12:09 97.6 F 79 16 169/99 95 Intake and Output 04/27/22 04/27/22 04/27/22 06:59 14:59 22:59 Intake Total 400 1200 Output Total 200 Balance 400 1000 Intake: IV 400 1200 Output: Estimated Blood Loss 200 Other: Weight 90.718 kg Constitutional: No acute distress, conversant, pleasant Eyes: Anicteric sclerae, moist conjunctiva, Pupils equal round reactive to light ENMT: NC/AT Oropharynx clear, no erythema, or exudates Neck: Supple, FROM, no masses, or JVD No carotid bruits No thyromegaly Lungs: Good breath sounds bilaterally Clear to percussion Normal respiratory effort, no accessory muscle use Cardiovascular: Heart regular in rate and rhythm, No murmurs, gallops, or rubs No peripheral edema Abdominal: Soft Nontender, no guarding, rebound or rigidity Abdomen moving with respiration Normoactive bowel sounds No hepatomegaly, No splenomegaly No palpable mass No abdominal wall hernia noted Skin: Normal temperature, tone, texture, turgor No induration No subcutaneous nodules No rash, lesions No ulcers Extremities: Drains in the left hip postsurgery No digital cyanosis No clubbing Pedal pulses intact and symmetrical Radial pulses intact and symmetrical No calf tenderness Psychiatric: Alert and oriented to person, place and time Appropriate affect fair judgement Neuro Muscles Strength 5/5 in all 4 extremities , limited over the left lower extremity due to postoperative Sensation to light touch grossly present throughout Cranial nerves II-XII grossly intact No focal sensory deficits Lymphatics: no palpable cervical or supraclavicular , or inguinal lymph nodes Assessment and Plan Assessment: Mild persistent asthma controlled Resume daily low dose steroid Resume Singulair Inhalers as needed Incentive spirometry Left hip arthritis status post total replacement Management per orthopedics DVT prophylaxis and pain medications Fibromyalgia resume home medications Full code Follow-up labs check CBC, CMP in the morning Thank you for allowing us to participate in the care of this patient. Do not hesitate to contact us with questions. Someone can be reached from the [facility] hospitalist group at all hours of the day at [phone].
[2022-04-28] MEDS ORDERED: methocarbamoL 750 MG TAB PO PRN (02:00)
[2022-04-28 03:20] VITALS: RESP 18; TEMP 98.3
[2022-04-28] MEDS: HYDROcodone/APAP 5-325MG 1 EACH TAB PO PRN ×2 (04:58→11:00)
[2022-04-28] MEDS: LACTATED RINGERS 1,000 ML IV SCH (07:23)
[2022-04-28] MEDS: GABAPENTIN 300 MG CAP PO SCH (07:26)
[2022-04-28] MEDS: ASPIRIN 81 MG PO SCH (07:26)
[2022-04-28] MEDS ORDERED: SYMBICORT 80-4.5 MCG INHALER INHALATION SCH (08:00)
[2022-04-28] MEDS ORDERED: busPIRone HCl 5 MG TAB PO SCH (08:00)
--- NOTE | 2022-04-28 08:19 | FL ---
Fluoroscopy INDICATION: Pain FINDINGS: Fluoroscopy time: 45.9 seconds. Images obtained: 5. IMPRESSIONS: 1. Documentation of fluoroscopy.
[2022-04-28 08:49] VITALS: BP 112/71; PULSE 90
[2022-04-28] MEDS ORDERED: DESVENLAFAXINE SUCCINATE 50 MG TAB.ER.24H PO SCH (09:00)
[2022-04-28] MEDS ORDERED: predniSONE 5 MG TAB PO SCH (09:00)
[2022-04-28 09:04] LABS: Basophils # (A) 0.03 X 10*3/uL (0.00-0.10); Basophils % (A) 0.2 %; Eosinophils # (A) 0.01 X 10*3/uL (0.04-0.35); Eosinophils % (A) 0.1 %; HCT 36.4 % (37.2-46.3); HGB 11.4 g/dL (12.0-15.0); Immature Grans, Automated 0.5 %; Lymphocytes # (A) 2.06 X 10*3/uL (0.90-5.00); Lymphocytes % (A) 12.1 %; MCH 29.5 pg (27.0-32.0); MCHC 31.3 g/dL (32.0-37.0); MCV 94.1 fL (80.0-97.0); Mean Platelet Volume 9.7 fL (9.5-12.2); Monocytes # (A) 1.12 X 10*3/uL (0.20-1.00); Monocytes % (A) 6.6 %; NRBC Per 100 WBC 0 /100 WBCS (0.0-0.0); Neutrophils # (A) 13.66 X 10*3/uL (1.80-7.70); Neutrophils % (A) 80.5 %; Platelet Count 297 X 10*3/uL (140-440); RBC 3.87 X 10*6/uL (4.10-5.20); RDW 12.4 % (11.5-14.5); WBC 16.96 X 10*3/uL (4.50-10.00)
[2022-04-28 09:08] LABS: ALT 11 U/L (8-44); AST 20 U/L (13-35); African American GFR (CKD) 98.2 (60.0-200.0); Albumin 3.7 g/dL (3.8-4.9); Albumin/Globulin Ratio 2.06 (1.60-3.17); Alkaline Phosphatase 64 U/L (41-126); Blood Urea Nitrogen 13.6 mg/dL (9.0-27.0); Calcium 8.7 mg/dL (8.7-10.3); Carbon Dioxide 25.7 mmol/L (20.0-27.5); Chloride 103 mmol/L (96-109); Globulin 1.8 g/dL (1.6-3.3); Glucose 101 mg/dL (70-110); Non-African American GFR(CKD) 84.8 (60.0-200.0); Potassium 4.7 mmol/L (3.5-5.5); Sodium 139 mmol/L (135-145); Total Bilirubin <0.15 mg/dL (0.30-1.20); Total Protein 5.5 g/dL (6.2-8.2)
--- NOTE | 2022-04-28 11:58 | P.DS ---
Providers Expected date of discharge: 04/28/22 Attending physician: Chandrakant Mckeon Consults: 04/27/22 18:32 Consult Physician Routine Consulting Provider: Zo Horner Consult Reason/Comments: medical management Do you want consulting provider notified?: Yes Primary care physician: Jaswant Parmar [facility] Course: This is a 51-year-old female with known history of degenerative arthritis of the lfet hip. The patient presents for evaluation. After discussion and consideration patient elects to proceed with total hip arthroplasty. The patient is seen preoperatively by and cleared for surgery. Patient is admitted to [facility] on 04/27/22 for left total hip arthroplasty. The procedures performed without complication or sequelae. The patient is doing well postoperatively. Labs and vital signs are stable on day of discharge. Patient is examined bedside with Dr. Mckeon this morning. Her pain is well- controlled. She is ambulating with a walker with minimal assistance. No complaints at this time. On inspection of the left hip, there is a clean, dry, intact Prevena wound vac in place. There is no drainage noted at this time. Hemovac drain removed bedside today. There is minimal soft tissue swelling to the hip and thigh. Patient has full foot and ankle motion without difficulty or pain. Neurovascular status to the left lower extremity is intact. Calf non-tender. Patient is discharged to home with home health services today in good condition, pending medical clearance. Follow-up with Dr. Mckeon in the office on 05/03/22. Please see med rec for accurate list of discharge medications. Plan - Discharge Summary Discharge Rx Participant: Yes New Discharge Prescriptions: No Action Multivitamins, Thera [Multivitamin (formulary)] 1 tab PO DAILY Mometasone/Formoterol [Dulera 100 Mcg/5 Mcg Inhaler] 2 puff INHALATION RT-BID busPIRone HCl [Buspar] 15 mg PO Q8HR Albuterol Sulfate [Proair Hfa] 1 - 2 puff INHALATION Q6HR PRN PRN Reason: Shortness Of Breath methocarbamoL [Robaxin] 750 mg PO QID PRN PRN Reason: MUSCLE SPASM predniSONE 5 mg PO DAILY oxyCODONE HCL/ACETAMINOPHEN [oxyCODONE HCL/ACETAMINOPHEN 5-325] 1 tab PO Q6H PRN PRN Reason: Pain Montelukast [Singulair] 10 mg PO HS Desvenlafaxine Succinate [Pristiq] 100 mg PO DAILY Celecoxib [CeleBREX] 200 mg PO BID Gabapentin 600 mg PO BID Discharge Medication List Mometasone/Formoterol [Dulera 100 Mcg/5 Mcg Inhaler] 2 puff INHALATION RT-BID 10/30/17 [History] Multivitamins, Thera [Multivitamin (formulary)] 1 tab PO DAILY 10/30/17 [History] busPIRone HCl [Buspar] 15 mg PO Q8HR 11/01/17 [History] Albuterol Sulfate [Proair Hfa] 1 - 2 puff INHALATION Q6HR PRN 04/11/22 [History] Celecoxib [CeleBREX] 200 mg PO BID 04/11/22 [History] Desvenlafaxine Succinate [Pristiq] 100 mg PO DAILY 04/11/22 [History] Montelukast [Singulair] 10 mg PO HS 04/11/22 [History] methocarbamoL [Robaxin] 750 mg PO QID PRN 04/11/22 [History] predniSONE 5 mg PO DAILY 04/11/22 [History] Gabapentin 600 mg PO BID 04/27/22 [History] oxyCODONE HCL/ACETAMINOPHEN [oxyCODONE HCL/ACETAMINOPHEN 5-325] 1 tab PO Q6H PRN 04/27/22 [History] Follow up Appointment(s)/Referral(s): [facility], [NON-STAFF] - As Needed ([facility] will call you to schedule your in home physical therapy visits. ) Chandrakant Mckeon MD [Medical Doctor] - 05/03/22 Activity/Diet/Wound Care/Special Instructions: Weight bear as tolerated on operative leg with a walker. Keep Prevena wound vac in place until follow-up in the office. Take pain medications as prescribed. Take aspirin 81mg BID x 4 weeks for blood clot prevention. Follow-up in the office on 05/03/[address] Mckeon for wound vac removal. Call the office with any questions or concerns, Discharge Disposition: HOME WITH HOME HEALTH SERVICES
[2022-04-28] MEDS ORDERED: MONTELUKAST 10 MG TAB PO SCH (21:00)
== END 2022-04-28 14:03 | disposition home health service (06) ==
LOC: OR 11:23 → 4SSUR 18:04 → OR 04-28 14:03
PROVIDERS: ATTEND Orthopaedic Surgery
DX: M16.12 Unilateral primary osteoarthritis, left hip (principal); F41.9 Anxiety disorder, unspecified; J45.30 Mild persistent asthma, uncomplicated; M79.7 Fibromyalgia; Z79.1 Long term (current) use of non-steroidal anti-inflammatories (NSAID); Z79.51 Long term (current) use of inhaled steroids; Z79.52 Long term (current) use of systemic steroids; Z79.899 Other long term (current) drug therapy; Z87.891 Personal history of nicotine dependence
CPT/HCPCS: 27130; 97161; 86900; 86901; 80053; 85025; 86850; 88300; 73501; 36415; C1776; J2250; J1100; J2710; J0690 ×2; J2405; J3010; J1170 ×2; J1885; J0330; J2704; J7512; J2001